=== PATIENT | male | born 1945 | race Caucasian/White ===

== ENCOUNTER 2022-01-18 15:25 | Inpatient (IN) | payer MEDICARE ==
[~2022-01-18] VITALS: Ht 172.7 cm; Wt 69.9 kg
[2022-01-18 16:16] LABS: BASOPHILS % (AUTO) 0.5 % (0.0-2.0); EOSINOPHILS % (AUTO) 2.5 % (0.0-6.0); HEMATOCRIT 46 % (39-51); HEMOGLOBIN 15.3 g/dL (13.5-17.5); MEAN CORPUSCULAR HGB CONC 33 g/dl (31.0-36.0); MEAN CORPUSCULAR VOLUME 94 fL (80-96); MONOCYTES % (AUTO) 5.5 % (2.0-12.0); NEUTROPHILS % (AUTO) 79.5 % (43.0-81.0); PLATELET COUNT (AUTO) 333 K/uL (150-450); RED BLOOD CELL COUNT(AUTO) 4.87 MIL/uL (4.5-6.0); WHITE BLOOD COUNT (AUTO) 9.7 K/uL (4.3-11.0)
[2022-01-18 16:17] LABS: LYMPHOCYTES # (AUTO) 1.2 K/uL (0.8-4.8); MONOCYTES # (AUTO) 0.5 K/uL (0.1-1.30); NEUTROPHILS # (AUTO) 7.7 K/uL (1.8-8.9)
--- NOTE | 2022-01-18 16:21 | NUR ---
[facility] TEAM REP NAME IS NIKI LAMBERT
[2022-01-18 16:31] LABS: CALCIUM, SERUM 8.9 mg/dL (8.5-10.1); CARBON DIOXIDE 32 mmol/L (21-32); CHLORIDE 103 mmol/L (98-107); CREATININE 1.4 mg/dL (0.6-1.3); GLUCOSE 155 mg/dL (74-106); POTASSIUM 3.4 mmol/L (3.5-5.1); SODIUM SERUM 140 mmol/L (136-145); UREA NITROGEN, BLOOD 8 mg/dL (7-18)
[2022-01-18 16:43] LABS: ALANINE AMINOTRANSFERASE 10 U/L (12-78); ALBUMIN 3.3 g/dL (3.4-5.0); ALCOHOL, BLOOD < 3 mg/dL (0-0); ALKALINE PHOSPHATASE 57 U/L (46-116); ASPARTATE AMINOTRANSFERASE 11 U/L (15-37); BILIRUBIN,DIRECT 0.1 mg/dL (0.0-0.2); BILIRUBIN,TOTAL 0.5 mg/dL (0.2-1.0); TOTAL PROTEIN, SERUM 7.6 g/dL (6.4-8.2)
[2022-01-18 16:47] LABS: ACETAMINOPHEN < 0 ug/ml (10-30)
--- NOTE | 2022-01-18 18:06 | NUR ---
room 213-A
--- NOTE | 2022-01-18 18:18 | NUR ---
REPORT GIVEN TO TONNY FOR KRISHNA
--- NOTE | 2022-01-18 18:55 | NUR ---
AN REESE [phone] SON
--- NOTE | 2022-01-18 19:00 | NUR ---
RN-CO: NOTIFIED DR TORIBIO REGARDING THIS ADMISSION. AWAITING TO REPLY.
--- NOTE | 2022-01-18 19:00 | NUR ---
THE PATIENT IS TRANSFERED TO ROOM 213-A IN STABLE CONDITON AND PER POLICY
[2022-01-18 19:01] LABS: BILIRUBIN,URINE NEGATIVE (NEGATIVE); COLOR,URINE YELLOW (YELLOW); LEUKOCYTE ESTERASE ,URINE SMALL (NEGATIVE); NITRITE, URINE NEGATIVE (NEGATIVE); PROTEIN,URINE NEGATIVE (NEGATIVE); UGLUCOSE NEGATIVE (NEGATIVE); UROBILINOGEN,URINE 0.2 EU/dL (0.2)
[2022-01-18 19:28] LABS: BACTERIA,URINE Many /HPF (None Seen); RBC,URINE 0-2 /HPF (0-2); SQUAMOUS EPITHELIAL CELL,UR Rare /HPF (None Seen)
[2022-01-18] MEDS ORDERED: LORAZEPAM 0.5 MG TABLET PO PRN (19:30)
[2022-01-18] MEDS ORDERED: MAG HYDROX/AL HYDROX/SIMETH 30 ML UDC PO PRN (19:30)
[2022-01-18] MEDS ORDERED: ACETAMINOPHEN 325 MG TABLET PO PRN (19:30)
[2022-01-18] MEDS ORDERED: MAGNESIUM HYDROXIDE 30 ML UDC PO PRN (19:30)
[2022-01-18] MEDS ORDERED: BLOOD SUGAR DIAGNOSTIC 1 EACH STRIP IN ONE (20:30)
[2022-01-18] MEDS: TEMAZEPAM 7.5 MG CAPSULE PO PRN (21:16)
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
[2022-01-19 07:16] LABS: CHOLESTEROL 173 mg/dL (<200); HDL CHOLESTEROL 47 mg/dL (40-60); LDL 90 mg/dL (0-99); TRIGLYCERIDES 199 mg/dL (30-150)
[2022-01-19 07:18] LABS: ALANINE AMINOTRANSFERASE 8 U/L (12-78); ALBUMIN 3.4 g/dL (3.4-5.0); ALKALINE PHOSPHATASE 68 U/L (46-116); ASPARTATE AMINOTRANSFERASE 15 U/L (15-37); BILIRUBIN,TOTAL 0.7 mg/dL (0.2-1.0); CALCIUM, SERUM 9.1 mg/dL (8.5-10.1); CARBON DIOXIDE 31 mmol/L (21-32); CHLORIDE 104 mmol/L (98-107); CREATININE 1.4 mg/dL (0.6-1.3); GLUCOSE 171 mg/dL (74-106); POTASSIUM 3.8 mmol/L (3.5-5.1); SODIUM SERUM 140 mmol/L (136-145); TOTAL PROTEIN, SERUM 8.1 g/dL (6.4-8.2); UREA NITROGEN, BLOOD 8 mg/dL (7-18)
[2022-01-19 08:00] VITALS: BP 149/81
--- NOTE | 2022-01-19 09:32 | NUR ---
ANTIONETTE Initial Discharge Plan: Patient currently resides at [address] [place] [address]; ([phone]). Patient would want to return back home upon discharge. ANTIONETTE will work with the MD, family, and pt to help coordinate appropriate discharge.
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
--- NOTE | 2022-01-19 13:05 | NUR ---
ANTIONETTE Family Contact: ANTIONETTE contacted pt's Moni ([phone]) to gather collateral and discuss treatment/discharge plan. She reported that on the house property they have two houses on the same property and pt has been living in one of the properties. She expressed that property is not livable and that he has been living in the other property with . She reported house needs to be remodeled. She reported upon dc pt will be coming back home.
--- NOTE | 2022-01-19 13:10 | NUR ---
Doctor Office: Nurse DIMA Dan notified that she received a call from pt's doctor office, Dr. Ling ([phone]). SW spoke with Bárbara who stated that she will be provided the aftercare appointments.
[2022-01-19] MEDS ORDERED: POLYVINYL ALCOHOL 15 ML BOTTLE OP PRN (14:30)
[2022-01-19 16:00] VITALS: BP 135/82
[2022-01-19] MEDS: NAPHAZOLINE HCL/PHENIR MAL 15 ML BOTTLE LEFTEYE SCH (17:00)
--- NOTE | 2022-01-19 18:00 | NUR ---
eye drops started.calm,cooperative.
[2022-01-19 20:00] VITALS: BP 154/87
[2022-01-19] MEDS ORDERED: MIRTAZAPINE 15 MG TABLET PO SCH (22:00)
[2022-01-20 08:00] VITALS: BP 139/89
[2022-01-20] MEDS: NAPHAZOLINE HCL/PHENIR MAL 15 ML BOTTLE LEFTEYE SCH ×2 (09:15→16:25)
--- NOTE | 2022-01-20 10:18 | NUR ---
Social Work Note/Substance Abuse Intervention: Patient was provided with a brief substance abuse intervention and referred to [facility] ([phone]), [facility] ([phone]), and [facility] ([phone]) for drinking alcohol.
--- NOTE | 2022-01-20 11:23 | NUR ---
SW Note: SW spoke with pt in regards to his living condition how his house needs to be remodeled and he has mold in the house. SW expressed that he would need a facility before returning back home and family is currently remodeling the home. He was agreeable of going to a nursing facility.
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
--- NOTE | 2022-01-20 13:06 | NUR ---
ANTIONETTE Family Contact: ANTIONETTE spoke with patient's Moni ([phone]) and discussed nursing facility options and she was agreeable with this. She requested for this to be "low profile and that celebrities do not find out".
--- NOTE | 2022-01-20 14:12 | NUR ---
SNF Referral: ANTIONETTE sent clinicals to Bailey mora from [facility] ([phone]) for placement option. SW sent H & P, progress notes, and medication list.
[2022-01-20 16:00] VITALS: BP 145/89
[2022-01-20] MEDS: LEVOFLOXACIN (250MG) 250 MG TABLET PO SCH (16:56)
[2022-01-20 20:00] VITALS: BP 146/91
--- NOTE | 2022-01-20 20:07 | NUR ---
GPS RN NOTE, RECEIVED PATIENT AWAKE AND IN BED, NO S/S OR COMPLAINTS OF PAIN AT THIS TIME. PATIENT IS DISPLAYING NO S/S OF APPARENT DISTRESS AT THIS TIME. PATIENT BREATHING IS UNLABORED WITH EQUAL RISE AND FALL OF THE CHEST. PATIENT IS ALERT AND ORIENTED X 2-3 ON ROOM AIR WITH A SPO2 96%. PATIENT IS COMPLIANT WITH MEDICATIONS, DELUSIONAL, PARANOID, ANXIOUS AT TIMES, AND COOPERATIVE. PATIENT DENIES SUICIDAL AND HOMICIDAL IDEATIONS AT THIS TIME. PATIENT ASSISTED WITH TURNING AND REPOSITIONING Q2HR AND PRN FOR COMFORT AND CIRCULATION. PATIENT HAS NO NEEDS AT THIS TIME. PATIENT EDUCATED ON THE USE OF THE CALL JO. PATIENT BED SIDE RAILS UP X 2 FOR SAFETY. PATIENT BED IS LOCKED, LOW, WITH BED ALARM ON. WILL CONTINUE TO MONITOR THIS PATIENT Q15 MINUTES WITH THE HELP OF STAFF TO MAINTAIN SAFETY.
[2022-01-20] MEDS: MIRTAZAPINE 15 MG TABLET PO SCH (21:39)
[2022-01-21 08:00] VITALS: BP 142/87
[2022-01-21] MEDS: NAPHAZOLINE HCL/PHENIR MAL 15 ML BOTTLE LEFTEYE SCH ×2 (08:50→16:16)
--- NOTE | 2022-01-21 09:30 | NUR ---
RN Notes: Received pt. awake in the room, interacting to the room mate and responding to staffs. Ate 25% for breakfast, compliant on med, pt. was on the phone and pleasant upon approached. Encouraged to verbalize feelings and motivated to attend group activity. No distress and no agitation noted. Needs attended and will continue to monitor for safety.
[2022-01-21 16:00] VITALS: BP 151/98
[2022-01-21] MEDS: LEVOFLOXACIN (250MG) 250 MG TABLET PO SCH (16:15)
[2022-01-21 20:29] VITALS: BP_SYST 118; BP_SYST 138; BP_DIAS 76; BP_DIAS 83
[2022-01-21] MEDS: MIRTAZAPINE 15 MG TABLET PO SCH (21:00)
[2022-01-22 08:00] VITALS: BP 148/82
[2022-01-22] MEDS: NAPHAZOLINE HCL/PHENIR MAL 15 ML BOTTLE LEFTEYE SCH (08:02)
--- NOTE | 2022-01-22 09:37 | NUR ---
RN Notes: Received pt. awake in the room, responsive to staffs and very pleasant upon approached. Pt. interacts with the room mate and with depressed mood. Ate 75% for breakfast and compliant on med. Encouraged to verbalize feelings and motivated to attend group activity. Needs attended and will continue to monitor for safety.
[2022-01-22 16:00] VITALS: BP 142/94
[2022-01-22] MEDS: LEVOFLOXACIN (250MG) 250 MG TABLET PO SCH (16:17)
--- NOTE | 2022-01-22 18:30 | NUR ---
Per pt. his headache gone away after taking Tylenol tabs.
--- NOTE | 2022-01-22 19:30 | NUR ---
GPS RN NOTE, RECEIVED PATIENT AWAKE AND IN BED, NO S/S OR COMPLAINTS OF PAIN AT THIS TIME. PATIENT IS DISPLAYING NO S/S OF APPARENT DISTRESS AT THIS TIME. PATIENT BREATHING IS UNLABORED WITH EQUAL RISE AND FALL OF THE CHEST. PATIENT IS ALERT AND ORIENTED X 2-3 ON ROOM AIR WITH A SPO2 96%. PATIENT IS COMPLIANT WITH MEDICATIONS, CALM AND COOPERATIVE. PATIENT DENIES SUICIDAL AND HOMICIDAL IDEATIONS AT THIS TIME. PATIENT ASSISTED WITH TURNING AND REPOSITIONING Q2HR AND PRN FOR COMFORT AND CIRCULATION. PATIENT HAS NO NEEDS AT THIS TIME. PATIENT EDUCATED ON THE USE OF THE CALL JO. PATIENT BED SIDE RAILS UP X 2 FOR SAFETY. PATIENT BED IS LOCKED, LOW, WITH BED ALARM ON. WILL CONTINUE TO MONITOR THIS PATIENT Q15 MINUTES WITH THE HELP OF STAFF TO MAINTAIN SAFETY.
[2022-01-22 20:12] VITALS: BP 136/92
[2022-01-22] MEDS: MIRTAZAPINE 15 MG TABLET PO SCH (21:06)
--- NOTE | 2022-01-23 07:50 | NUR ---
RN NOTE PATIENT IS AWAKE IN BED RESTING A/O X 4. NO S/S OF PAIN NOTED AT THIS TIME. ON ROOM AIR, NO DISTRESS OR SHORTNESS OF BREATH NOTED. PATIENT IS COMPLIANT WITH MEDICATIONS. PATIENT DENIES SUICIDAL AND HOMICIDAL IDEATIONS AT THIS TIME. FALL AND SAFETY MEASURES IN PLACE, BED IN LOW AND LOCK POSITION, CALL LIGHT AND TABLE WITHIN EASY REACH, SIDE RAILS UP X2. PATIENT EDUCATED ON THE USE OF THE CALL JO. PATIENT HAS NO NEEDS AT THIS TIME. WILL CONTINUE TO MONITOR THIS PATIENT Q15 MINUTES TO MAINTAIN SAFETY.
[2022-01-23 08:00] VITALS: BP 130/80
[2022-01-23 16:00] VITALS: BP 134/68
[2022-01-23] MEDS: LEVOFLOXACIN (250MG) 250 MG TABLET PO SCH (17:43)
--- NOTE | 2022-01-23 18:41 | NUR ---
RN CLOSING NOTE PATIENT IS AWAKE IN BED RESTING A/O X 4. NO S/S OF PAIN NOTED AT THIS TIME. ON ROOM AIR, NO DISTRESS OR SHORTNESS OF BREATH NOTED. PATIENT IS COMPLIANT WITH MEDICATIONS. PATIENT DENIES SUICIDAL AND HOMICIDAL IDEATIONS AT THIS TIME. FALL AND SAFETY MEASURES IN PLACE, BED IN LOW AND LOCK POSITION, CALL LIGHT AND TABLE WITHIN EASY REACH, SIDE RAILS UP X2. PATIENT EDUCATED ON THE USE OF THE CALL JO. PATIENT HAS NO NEEDS AT THIS TIME. PATIENT WAS MONITOR Q15 MINUTES TO MAINTAIN SAFETY. WILL ENDORSE TO TETRYL DISSOLVER OPERATOR.
[2022-01-23 19:44] VITALS: BP 139/77
[2022-01-23 20:00] VITALS: BP 130/80
[2022-01-23] MEDS: TEMAZEPAM 7.5 MG CAPSULE PO PRN (20:18)
--- NOTE | 2022-01-23 20:40 | NUR ---
RN OPENING NOTES. RECEIVED PT IN BED RESTING COMFORTABLE.NO SOB/DISTRESS NOTED.NO BEHAVIORAL CHANGES AT THIS TIME.CALL LIGHT WITHIN REACH.CONTINUE TO MONITOR.
[2022-01-23] MEDS: MIRTAZAPINE 15 MG TABLET PO SCH (21:17)
[2022-01-24 08:00] VITALS: BP 136/76
--- NOTE | 2022-01-24 15:27 | NUR ---
Court Notification: SW spoke with patient's Moni ([phone]) and notified of pt's 5250 hearing today.
[2022-01-24 16:00] VITALS: BP 151/92
[2022-01-24] MEDS: LEVOFLOXACIN (250MG) 250 MG TABLET PO SCH (17:35)
--- NOTE | 2022-01-24 19:49 | NUR ---
GPS RN NOTE RECEIVED PATIENT AWAKE WALKING ON THE HALLWAY A/O X 4. NO S/S OF PAIN NOTED AT THIS TIME. ON ROOM AIR, NO DISTRESS OR SHORTNESS OF BREATH NOTED. PATIENT IS COMPLIANT WITH MEDICATIONS. PATIENT DENIES SUICIDAL AND HOMICIDAL IDEATIONS AT THIS TIME. FALL AND SAFETY MEASURES IN PLACE, BED IN LOW AND LOCK POSITION, CALL LIGHT AND TABLE WITHIN EASY REACH, SIDE RAILS UP X2. WILL CONTINUE TO MONITOR THROUGHOUT THE SHIFT.
[2022-01-24 20:33] VITALS: BP 146/76
[2022-01-24] MEDS: MIRTAZAPINE 15 MG TABLET PO SCH (21:37)
--- NOTE | 2022-01-25 06:43 | NUR ---
GPS RN CLOSING NOTE PATIENT SLEEPING IN BED A/O X 3, NO S/S OF PAIN NOTED AT THIS TIME. ON ROOM AIR, NO DISTRESS OR SHORTNESS OF BREATH NOTED. PATIENT IS COMPLIANT WITH MEDICATIONS. ALL DUE MEDS GIVEN MD ORDERED. FALL AND SAFETY MEASURES IN PLACE, BED IN LOWEST AND LOCK POSITION, CALL LIGHT AND TABLE WITHIN EASY REACH, SIDE RAILS UP X2. WILL ENDORSE TO AM SHIFT FOR KRISHNA.
[2022-01-25 08:00] VITALS: BP 122/73
--- NOTE | 2022-01-25 08:10 | NUR ---
Court Hearing: Patient's court hearing for 4350 was today and it was upheld for GD.
--- NOTE | 2022-01-25 10:46 | NUR ---
ANTIONETTE Family Contact: SW contacted pt's Moni ([phone]) spoke with and reported pt will be discharged 01/27 to [facility] and she was agreeable of this.
--- NOTE | 2022-01-25 12:59 | NUR ---
ANTIONETTE Note: ANTIONETTE spoke with pt's doctor, Catracho, ([phone]) and gave him update on pt's current condition and discharge plan. He was concerned of pt returning back home.
[2022-01-25 13:07] LABS: CALCIUM, SERUM 9.4 mg/dL (8.5-10.1); CARBON DIOXIDE 32 mmol/L (21-32); CHLORIDE 104 mmol/L (98-107); CREATININE 1.5 mg/dL (0.6-1.3); GLUCOSE 288 mg/dL (74-106); POTASSIUM 4.5 mmol/L (3.5-5.1); SODIUM SERUM 142 mmol/L (136-145); UREA NITROGEN, BLOOD 15 mg/dL (7-18)
[2022-01-25 16:00] VITALS: BP 110/64
[2022-01-25] MEDS: LEVOFLOXACIN (250MG) 250 MG TABLET PO SCH (17:25)
[2022-01-25 20:17] VITALS: BP 139/63
[2022-01-25] MEDS: MIRTAZAPINE 15 MG TABLET PO SCH (21:28)
[2022-01-26 08:00] VITALS: BP 112/72
--- NOTE | 2022-01-26 11:45 | NUR ---
RN-NOTES DR. SELLERS MADE AWARE OF PATIENT'S. A1C 7.3 WITH T.O ORDER OF [facility] ACCU-CHECK WITH MODERATE SLIDING SCALE. NOTED AND CARRIED OUT.
[2022-01-26] MEDS ORDERED: *INSULIN REGULAR(HUMULIN R)HUM 100 UNIT/ML VIAL SQ PRN (12:00)
[2022-01-26] MEDS ORDERED: DEXTROSE 50%-WATER 50 ML DISP.SYRIN IV PRN (12:00)
[2022-01-26 16:00] VITALS: BP 129/79
[2022-01-26] MEDS: LEVOFLOXACIN (250MG) 250 MG TABLET PO SCH (16:28)
[2022-01-26] MEDS: BLOOD SUGAR DIAGNOSTIC 1 EACH STRIP VI SCH ×2 (17:18→23:01)
[2022-01-26] MEDS: INSULIN REGULAR, HUMAN 100 UNIT/ML 3 ML VIAL SQ PRN ×2 (17:30→21:08)
--- NOTE | 2022-01-26 18:16 | NUR ---
RN-NOTES PATIENT IS VISIBLE IN THE UNIT CALM AND COOPERATIVE ABLE TO MAKE NEEDS KNOWN TO THE STAFF,PARTICIPATES IN THE GROUP.COMPLIANT WITH MEDICATIONS,NO ACUTE DISTRESS NOTED. AMBULATORY STEADY GAIT.WILL CONT. MONITORING FOR SAFETY AND BEHAVIOR. WILL ENDORSE TO INCOMING NURSE FOR CONTINUITY OF CARE.
[2022-01-26 20:00] VITALS: BP 147/86
[2022-01-26] MEDS: MIRTAZAPINE 15 MG TABLET PO SCH (21:00)
[2022-01-27] MEDS: INSULIN REGULAR, HUMAN 100 UNIT/ML 3 ML VIAL SQ PRN ×2 (06:18→12:04)
[2022-01-27] MEDS: BLOOD SUGAR DIAGNOSTIC 1 EACH STRIP VI SCH ×2 (06:19→12:01)
[2022-01-27 08:00] VITALS: BP 116/71
--- NOTE | 2022-01-27 08:05 | NUR ---
SW Discharge Note: Patient will be discharged to [facility] located at [address] [place] [id number]; ([phone]) via ambulance. Catrina montano from [facility] accepted pt and is welcoming pt today. Patients Moni ([phone]) is aware and agreeable. Pt appears to be alert and oriented x2 and is willing to go to the nursing facility. Pt denies visual/auditory hallucinations. Pt denies denies suicidal or homicidal ideation. Patient will continue to follow-up with (psychiatrist) Dr. You [address] [facility] [address], [place] [address]; ([phone]). (skin care specialist) Dr. Estrada [address] [facility] [address], [place] [address]; ([phone]). Pt presented with euthymic mood and congruent affect.
--- NOTE | 2022-01-27 14:56 | NUR ---
RN-DISCHARGE NOTES PATIENT HAD A DISCHARGE ORDER FROM DR. TORIBIO ( PSYCHIATRIST) DR. SELLERS MEDICALLY CLEARED PATIENT FOR DISCHARGE. PATIENT WAS DISCHARGED TO [facility]. ALL RX MEDICATION WAS REVIEWED WITH THE PATIENT WITH UNDERSTANDING. PATIENT REFUSED FULL BODY ASSESSMENT PRIOR TO DISCHARGE. PATIENT LEFT THE UNIT IN STABLE CONDITION A/O X3-4 AMBULATORY STEADY GAIT. VITAL SIGN FF: BP 158/61,P81, R 16, TEMP. 98 AND O2 SAT 100% RA. INSTRUCTED PATIENT TO FOLLOW UP WITH PCP IN A WEEK OR NEEDED AND CALL 911 INCASE OF EMERGENCY OR GO TO THE NEAREST EMERGENCY ROOM INCASE OF EMERGENCY .PATIENT LEFT THE UNIT WITH ALL BELONGINGS INCLUDING ROBLEDO OF $ 785.00 AND X1 IPAD AND ALL OTHER BELONGINGS, AND WAS ENDORSED TO THE AMBULANCE STAFF. PATIENT WAS LEFT THE UNIT VIA AMBULANCE. PER SW NOTES PATIENT'S ERYN WAS AWARE OF THE DISCHARGE.
== END 2022-01-27 15:20 | DRG 881 ==
LOC: ER 15:30 → GPS 18:24
PROVIDERS: ADMIT Psychiatry & Neurology Psychosomatic Medicine; ATTEND Internal Medicine
DX: F32.A Depression, unspecified (principal); N17.0 Acute kidney failure with tubular necrosis; N39.0 Urinary tract infection, site not specified; Z16.12 Extended spectrum beta lactamase (ESBL) resistance; F29 Unspecified psychosis not due to a substance or known physiological condition; Z73.6 Limitation of activities due to disability; Z20.822 Contact with and (suspected) exposure to COVID-19; F43.10 Post-traumatic stress disorder, unspecified; G31.84 Mild cognitive impairment of uncertain or unknown etiology; F10.10 Alcohol abuse, uncomplicated; Y90.0 Blood alcohol level of less than 20 mg/100 ml; E87.6 Hypokalemia; R73.9 Hyperglycemia, unspecified; E88.09 Other disorders of plasma-protein metabolism, not elsewhere classified; H11.32 Conjunctival hemorrhage, left eye; B96.20 Unspecified Escherichia coli [E. coli] as the cause of diseases classified elsewhere; Z86.59 Personal history of other mental and behavioral disorders; R29.6 Repeated falls; R32 Unspecified urinary incontinence
CPT/HCPCS: 36415; 80048-TC; 80053-TC; 80061-TC; 80076-TC; 81001; 82962-TC; 84484-TC; 85025-TC; 87081-TC; 87086-TC; 87186-TC; C9803; G0480; J1815

== ENCOUNTER 2024-08-24 13:22 | Inpatient (IN) | payer MEDICARE, BC ==
[~2024-08-24] VITALS: Ht 172.7 cm; Wt 59.0 kg
[2024-08-24] MEDS: IV NS 0.9% 1,000 ML BAG IV ONE (13:37)
[2024-08-24 14:10] LABS: CALCIUM, SERUM 9.4 mg/dL (8.5-10.1); CARBON DIOXIDE 28 mmol/L (21-32); CHLORIDE 100 mmol/L (98-107); CREATININE 1.5 mg/dL (0.6-1.3); GLUCOSE 302 mg/dL (74-106); POTASSIUM 4.1 mmol/L (3.5-5.1); SODIUM SERUM 138 mmol/L (136-145); UREA NITROGEN, BLOOD 18 mg/dL (7-18)
[2024-08-24 14:23] LABS: BASOPHILS % (AUTO) 0.2 % (0.0-2.0); EOSINOPHILS % (AUTO) 0.3 % (0.0-6.0); HEMATOCRIT 37 % (39-51); HEMOGLOBIN 12.8 g/dL (13.5-17.5); LYMPHOCYTES # (AUTO) 0.1 K/uL (0.8-4.8); LYMPHOCYTES % (AUTO) 1.1 % (20.0-44.0); MEAN CORPUSCULAR HEMOGLOBIN 31 PG (26.0-33.0); MEAN CORPUSCULAR HGB CONC 34 g/dl (31.0-36.0); MEAN CORPUSCULAR VOLUME 91 fL (80-96); MONOCYTES # (AUTO) 0.3 K/uL (0.1-1.30); MONOCYTES % (AUTO) 3.4 % (2.0-12.0); NEUTROPHILS # (AUTO) 9.2 K/uL (1.8-8.9); PLATELET COUNT (AUTO) 314 K/uL (150-450); RED BLOOD CELL COUNT(AUTO) 4.12 MIL/uL (4.5-6.0); RED CELL DISTRIBUTION WIDTH 13.6 % (11.5-15.0); WHITE BLOOD COUNT (AUTO) 9.7 K/uL (4.3-11.0)
[2024-08-24 18:23] LABS: APPEARANCE,URINE CLEAR (CLEAR); BILIRUBIN,URINE 1+ (NEGATIVE); BLOOD, URINE 1+ Ery/uL (NEGATIVE); COLOR,URINE YELLOW (YELLOW); KETONES,URINE 1+ mg/dL (NEGATIVE); LEUKOCYTE ESTERASE ,URINE NEGATIVE (NEGATIVE); NITRITE, URINE NEGATIVE (NEGATIVE); PROTEIN,URINE 2+ mg/dl (NEGATIVE); UGLUCOSE 3+ mg/dL (NEGATIVE)
[2024-08-24 18:37] LABS: ADD URINE CULTURE YES; BACTERIA,URINE 2+ /HPF (None Seen); WBC,URINE 0-2 /HPF (0-3)
[2024-08-24 20:10] VITALS: BP 135/67; TEMP 99.1; O2SAT 100
[2024-08-24 21:00] VITALS: BP 135/67; TEMP 99.1; O2SAT 100
[2024-08-24] MEDS ORDERED: MAG HYDROX/AL HYDROX/SIMETH 30 ML UDC PO PRN (21:30)
[2024-08-24] MEDS ORDERED: DEXTROSE 50%-WATER 50 ML DISP.SYRIN IV PRN (21:30)
[2024-08-24] MEDS ORDERED: MAGNESIUM HYDROXIDE 30 ML UDC PO PRN (21:30)
[2024-08-24] MEDS ORDERED: ONDANSETRON HCL/PF 4 MG/2 ML VIAL IVP PRN (21:30)
[2024-08-24] MEDS: BLOOD SUGAR DIAGNOSTIC 1 EACH STRIP IN SCH (22:15)
[2024-08-24] MEDS: INSULIN REGULAR, HUMAN 100 UNIT/ML 3 ML VIAL SQ PRN (22:23)
[2024-08-25] MEDS: TEMAZEPAM 7.5 MG CAPSULE PO ONE (00:03)
[2024-08-25 06:33] LABS: BASOPHILS % (AUTO) 0.1 % (0.0-2.0); HEMATOCRIT 37 % (39-51); HEMOGLOBIN 12.2 g/dL (13.5-17.5); LYMPHOCYTES # (AUTO) 0.6 K/uL (0.8-4.8); MEAN CORPUSCULAR HEMOGLOBIN 30 PG (26.0-33.0); MEAN CORPUSCULAR HGB CONC 33 g/dl (31.0-36.0); MEAN CORPUSCULAR VOLUME 90 fL (80-96); MONOCYTES # (AUTO) 0.7 K/uL (0.1-1.30); MONOCYTES % (AUTO) 7.1 % (2.0-12.0); NEUTROPHILS # (AUTO) 8.7 K/uL (1.8-8.9); NEUTROPHILS % (AUTO) 86.8 % (43.0-81.0); PLATELET COUNT (AUTO) 265 K/uL (150-450); RED BLOOD CELL COUNT(AUTO) 4.12 MIL/uL (4.5-6.0); RED CELL DISTRIBUTION WIDTH 13.5 % (11.5-15.0); WHITE BLOOD COUNT (AUTO) 10.1 K/uL (4.3-11.0)
[2024-08-25 06:46] LABS: ALBUMIN 2.4 g/dL (3.4-5.0); BILIRUBIN,TOTAL 0.4 mg/dL (0.2-1.0); CALCIUM, SERUM 8.6 mg/dL (8.5-10.1); CREATININE 1.2 mg/dL (0.6-1.3); MAGNESIUM 2.2 mg/dL (1.8-2.4); PHOSPHORUS 2.9 mg/dL (2.5-4.9); POTASSIUM 3.3 mmol/L (3.5-5.1); TOTAL PROTEIN, SERUM 7.1 g/dL (6.4-8.2)
[2024-08-25 06:56] LABS: THYROID STIMULATING HORMONE 2.13 uIU/mL (0.358-3.74)
[2024-08-25 08:00] VITALS: BP 105/51; TEMP 97.7; O2SAT 94
[2024-08-25] MEDS: POTASSIUM CHLORIDE 20 MEQ TAB.PRT.SR PO SCH (10:27)
[2024-08-25] MEDS ORDERED: MIRT-90 PO (14:17)
[2024-08-25] MEDS ORDERED: LEVO50TA8 PO (14:17)
[2024-08-25] MEDS ORDERED: ATEN25TA PO (14:17)
[2024-08-25] MEDS ORDERED: TRAZ-252 PO (14:17)
[2024-08-25 16:00] VITALS: BP 135/75; TEMP 99.9; O2SAT 97
[2024-08-25] MEDS: ACETAMINOPHEN 325 MG TABLET PO PRN (16:45)
[2024-08-25 20:00] VITALS: BP 124/69; TEMP 98.4; O2SAT 99
[2024-08-25 23:32] VITALS: BP 124/69; TEMP 98.4; O2SAT 99
[2024-08-26 08:00] VITALS: BP 133/70; TEMP 99.9; O2SAT 98
[2024-08-26 08:34] LABS: HEMATOCRIT 39 % (39-51); LYMPHOCYTES # (AUTO) 0.6 K/uL (0.8-4.8); LYMPHOCYTES % (AUTO) 4.7 % (20.0-44.0); MEAN CORPUSCULAR HEMOGLOBIN 30 PG (26.0-33.0); MEAN CORPUSCULAR HGB CONC 34 g/dl (31.0-36.0); MEAN CORPUSCULAR VOLUME 89 fL (80-96); MONOCYTES # (AUTO) 0.5 K/uL (0.1-1.30); MONOCYTES % (AUTO) 4.6 % (2.0-12.0); NEUTROPHILS # (AUTO) 10.9 K/uL (1.8-8.9); NEUTROPHILS % (AUTO) 90.7 % (43.0-81.0); PLATELET COUNT (AUTO) 266 K/uL (150-450); RED BLOOD CELL COUNT(AUTO) 4.34 MIL/uL (4.5-6.0); RED CELL DISTRIBUTION WIDTH 13.9 % (11.5-15.0)
[2024-08-26 11:00] LABS: CREATININE 1.1 mg/dL (0.6-1.3); POTASSIUM 3.5 mmol/L (3.5-5.1)
[2024-08-26 16:00] VITALS: BP 146/74; TEMP 99.7; O2SAT 99
[2024-08-26 20:00] VITALS: BP 136/78; TEMP 99; O2SAT 97
[2024-08-26 22:54] VITALS: BP 136/78; TEMP 99; O2SAT 97
[2024-08-27 07:20] LABS: HEMATOCRIT 38 % (39-51); HEMOGLOBIN 12.7 g/dL (13.5-17.5); LYMPHOCYTES # (AUTO) 0.6 K/uL (0.8-4.8); LYMPHOCYTES % (AUTO) 5.2 % (20.0-44.0); MEAN CORPUSCULAR HEMOGLOBIN 30 PG (26.0-33.0); MEAN CORPUSCULAR HGB CONC 33 g/dl (31.0-36.0); MEAN CORPUSCULAR VOLUME 88 fL (80-96); MONOCYTES # (AUTO) 0.6 K/uL (0.1-1.30); NEUTROPHILS # (AUTO) 11.1 K/uL (1.8-8.9); NEUTROPHILS % (AUTO) 89.8 % (43.0-81.0); PLATELET COUNT (AUTO) 280 K/uL (150-450); RED BLOOD CELL COUNT(AUTO) 4.31 MIL/uL (4.5-6.0); RED CELL DISTRIBUTION WIDTH 14.1 % (11.5-15.0); WHITE BLOOD COUNT (AUTO) 12.3 K/uL (4.3-11.0)
[2024-08-27 07:27] LABS: ALBUMIN 2.3 g/dL (3.4-5.0); BILIRUBIN,TOTAL 0.5 mg/dL (0.2-1.0); CALCIUM, SERUM 8.9 mg/dL (8.5-10.1); CREATININE 1.1 mg/dL (0.6-1.3); MAGNESIUM 2.1 mg/dL (1.8-2.4); PHOSPHORUS 3.4 mg/dL (2.5-4.9); POTASSIUM 3.2 mmol/L (3.5-5.1)
[2024-08-27 08:00] VITALS: BP 134/71; TEMP 99.7; O2SAT 98
[2024-08-27] MEDS: POTASSIUM CHLORIDE 20 MEQ TAB.PRT.SR PO ONE (08:13)
[2024-08-27 08:30] VITALS: BP 134/71; TEMP 97.7; O2SAT 98
[2024-08-27 16:00] VITALS: BP 141/83; TEMP 99.9; O2SAT 100
[2024-08-27 17:30] VITALS: TEMP 98.1
== END 2024-08-27 19:40 | DRG 640 ==
LOC: ER 13:32 → MED 18:59
PROVIDERS: ATTEND Internal Medicine
DX: E86.0 Dehydration (principal); G93.41 Metabolic encephalopathy; D62 Acute posthemorrhagic anemia; F03.93 Unspecified dementia, unspecified severity, with mood disturbance; R62.7 Adult failure to thrive; E03.9 Hypothyroidism, unspecified; I10 Essential (primary) hypertension; E11.9 Type 2 diabetes mellitus without complications; F43.10 Post-traumatic stress disorder, unspecified; F32.A Depression, unspecified; F10.91 Alcohol use, unspecified, in remission; M89.8X9 Other specified disorders of bone, unspecified site; R53.1 Weakness; E87.6 Hypokalemia; Z79.899 Other long term (current) drug therapy; Z79.890 Hormone replacement therapy; Z91.81 History of falling
CPT/HCPCS: 36415; 70450-TC; 71045-TC; 80048-TC; 80053-TC; 81001; 82962-TC; 83735-TC; 84100-TC; 84443-TC; 84484-TC; 85025-TC; 87086-TC; 97110-TC; 97116-TC; 97530-TC; A4349; G0378; J1815